=== PATIENT | male | born 1930 | race Caucasian/White ===

== ENCOUNTER 2017-11-25 22:37 | Inpatient (IN) | payer OTHER ==
[~2017-11-25] VITALS: Ht 188 cm; Wt 80.3 kg
--- NOTE | ~2017-11-25 | HC ---
[facility] [place] [address] CONSULTATION Name: KAIT ARANDA Room #: 246-P [facility] IN M.R.#: [id number] Admission: 11/26/17 Attend Phys: Hussain Dove MD Discharge: 11/29/17 Date of : [birth year] Report #: [id number] THIS REPORT FOR: //name// CC: Hussain Breaux REFERRAL PHYSICIAN: Dr. Garcia. REASON FOR REFERRAL: Acute respiratory failure. HISTORY OF PRESENT ILLNESS: The patient is an 87-year-old long term patient with dementia, admitted on 11/26/2017 with an altered mental status. He was found to be hypernatremic, malnourished, encephalopathic, profoundly weak. Pulmonary consult is requested as the patient had progressively been hypoxic, working on CPAP since last evening. Currently, the patient is nonresponsive, breathing about 48 breaths per minute. PAST MEDICAL HISTORY: Notable for history of dementia, progressive debility and weakness, diabetes mellitus type 2, chronic kidney disease, atrial fibrillation, history of heart failure. ALLERGIES: None noted. MEDICATIONS: Lists are reviewed. FAMILY HISTORY: Unknown. SOCIAL HISTORY: He is from the long term. No prior history of tobacco or alcohol use. REVIEW OF SYSTEMS: Deferred as the patient is not able to provide any history. PHYSICAL EXAMINATION: GENERAL: He is not responsive, very tachypneic with respiratory rate around 48. VITAL SIGNS: Temperature 96 degrees Fahrenheit, pulse is 110, respiratory rate is 48-50, blood pressure 107/79 mmHg, saturation % on BiPAP. HEENT: Normocephalic, atraumatic. NECK: Supple, without lymphadenopathy or thyromegaly. CHEST: Breath sounds are coarse bilaterally. Air movements are mildly reduced. CARDIOVASCULAR: Normal S1, S2. There are no obvious murmurs or gallop. Pulses are 2+/4+ bilaterally. ABDOMEN: Soft, nontender, no organomegaly or masses felt. GENITOURINARY: Deferred. RECTAL: Deferred. EXTREMITIES: There is no edema, cyanosis or clubbing. [facility] [address] [place] [address] CONSULTATION Name: KAIT ARANDA Room #: 246-P [facility] IN M.R.#: [id number] Admission: 11/26/17 Attend Phys: Hussain Dove MD Discharge: 11/29/17 Date of : [birth year] Report #: [id number] LABORATORY DATA: Abdominal ultrasound shows diffuse hepatic steatosis, infrarenal aortic aneurysm. Chest x-ray from yesterday shows no acute changes. CT head on admission shows no acute intracranial abnormality, age-related atrophy and chronic microvascular ischemia is noted, mild symmetric ventriculomegaly is present. Sodium on admission was 169. Today is 156, potassium 4.0, chloride 116, CO2 is 22, BUN is 56, creatinine 2.4, on admission was 2.8. Liver enzymes are mildly abnormal. WBC 6600, hemoglobin 15.5, platelets are 60,000. Albumin 1.7. Arterial blood gas performed yesterday revealed pH 7.43, pCO2 33, pO2 147 on FiO2 of 60%. IMPRESSION: 1. Acute hypoxic respiratory failure in this 87-year-old white male with dementia, debility, malnutrition. He was admitted with hypernatremia with a history of chronic kidney disease. Hypernatremia has improved with IV fluids. He is profoundly malnourished with an albumin of 1.7. His encephalopathy remains abnormal being unresponsive. His chest exam is abnormal showing coarse breath sounds bilaterally. The patient's acute respiratory failure is likely multifactorial, encephalopathy, retained respiratory secretions along with possible sepsis leading to leaky capillary syndrome. With profound tachypnea, cannot rule out central nervous system event such as cerebrovascular accident. 2. Hypernatremia, improved, felt to be related to volume depletion. 3. Metabolic encephalopathy, along with history of dementia, likely advanced. 4. Profound malnutrition, albumin as mentioned above. 5. Diabetes. 6. Chronic kidney disease ?acute kidney injury. 7. Medical directive Do Not Resuscitate. RECOMMENDATION AND DISCUSSION: Had a long discussion with the patient's only living son, Andrea, telephone number [phone]. We discussed all the issues as mentioned above. We also discussed the patient's severe distress, particularly respiratory status. Also discussed that given his severe comorbid conditions, I recommended comfort care. The patient's son voices understanding and is agreeable. We will initiate morphine drip to titrate for comfort. Then, we will discontinue BiPAP and O2. Thank you for this consultation. <ELECTRONICALLY SIGNED> By: Juan Carlos Vargas MD 11/30/17 1546 [id number] Juan Carlos Vargas MD /nt
--- NOTE | ~2017-11-25 | EKG ---
[address] [place] [address] ELECTROCARDIOGRAM REPORT Name: KAIT ARANDA Room #: 246-P AD[facility] IN M.R.#: [id number] Admission: 11/26/17 Attend Phys: Hussain Dove MD Discharge: Date of : [birth year] Report #: [id number] THIS REPORT FOR: //name// [facility] ED Test Date: 2017-11-25 Test Time: 23:34:02 Pat Name: KAIT ARANDA Department: Room: Gender: [employer]: ANNABEL : 1930 Requested By: Kait Tomlin Order Number: [id number] MD: Ifeanyi Teran Measurements Intervals [place] Rate: 91 P: -81 TN: 157 QRS: 56 QRSD: 107 T: -86 QT: 396 QTc: 488 Interpretive Statements Sinus or ectopic atrial rhythm Nonspecific ST and T wave abnormality No previous ECG available for comparison Electronically Signed On 11-26-2017 12:58:14 CDT by Ifeanyi Teran [email or web address] <ELECTRONICALLY SIGNED> By: Ifenayi Teran MD, [facility] 11/26/17 [id number] Ifeanyi Teran MD, FACC /EPI
[2017-11-25 22:46] VITALS: BP 140/78
[2017-11-25 23:46] LABS: HCO3 22.3 mmol/L (22.0-26.0); PCO2 37.3 mmHg (35.0-45.0); PO2 71.8 mmHg (80.0-100.0); pH 7.394 (7.360-7.450); sO2 94.5 % (92.0-98.0)
[2017-11-26] VITALS (29 sets, daily range): BP systolic 76–142; BP diastolic 47–100
[2017-11-26 00:19] LABS: HEMATOCRIT 57.3 % (42.0-52.0); HEMOGLOBIN 18.7 gm/dL (14.0-18.0); MCH 30.8 pg (26.0-34.0); MCHC 32.7 g/dL (28.0-37.0); MCV 94.1 fL (80.0-100.0); RBC 6.09 mil/uL (4.50-6.00); RDW 14.3 % (10.5-14.5)
[2017-11-26 00:25] LABS: ANION GAP 16 mmol/L (7-16); BUN 128 mg/dL (7-18); CALCIUM 9.6 mg/dL (8.5-10.1); CHLORIDE 127 mmol/L (98-107); CO2 26 mmol/L (21-32); CREATININE 2.8 mg/dL (0.7-1.3); GLUCOSE 262 mg/dL (74-106); POTASSIUM 3.8 mmol/L (3.5-5.1)
[2017-11-26 00:32] LABS: SODIUM 169 mmol/L (136-145)
[2017-11-26] MEDS ORDERED: TUMS PO (00:34)
[2017-11-26] MEDS ORDERED: PEPCID20 MG PO (00:34)
[2017-11-26] MEDS ORDERED: APAP650 PO (00:34)
[2017-11-26] MEDS ORDERED: ARICEPT10 M1 PO (00:35)
[2017-11-26 00:36] LABS: URINE BLOOD 3+ (Negative); URINE CLARITY CLEAR; URINE GLUCOSE-RANDOM* NEGATIVE (Negative); URINE KETONES NEGATIVE (Negative); URINE LEUKOCYTES-REFLEX NEGATIVE (Negative); URINE NITRITE-REFLEX NEGATIVE (Negative); URINE PROTEIN (DIPSTICK) TRACE (Negative); URINE SPECIFIC GRAVITY >= 1.030 (1.005-1.035)
[2017-11-26] MEDS ORDERED: MELATONIN5 M1 PO (00:36)
[2017-11-26] MEDS ORDERED: ADMELOG SO100 UNIT/1 SUBQ (00:36)
[2017-11-26 00:37] LABS: ALBUMIN 2.8 g/dL (3.4-5.0); DIRECT BILIRUBIN 1.1 mg/dL (<0.1-0.3); SGOT 47 U/L (15-37); SGPT 118 U/L (30-65); TOTAL PROTEIN 7.6 g/dL (6.4-8.2); TROPONIN-I < 0.04 ng/mL (<0.06)
[2017-11-26 00:40] LABS: ICTOTEST (BILI CONFIRMATORY) Negative (Negative); URINE BILIRUBIN NEGATIVE (Negative); URINE COLOR DARK YELLOW
[2017-11-26 00:48] LABS: HYALINE CASTS 0-3 Few /LPF (None Seen); MUCUS 0-3 Light strn/LPF (None Seen)
[2017-11-26 00:49] LABS: AMORPHOUS URATES Few /LPF (None Seen); SQUAMOUS None Seen /LPF (0-3); URINE RBC >20 Many /HPF (0-2)
[2017-11-26 00:50] LABS: BACTERIA-REFLEX >30 Many /HPF (None Seen); URINE WBC-REFLEX 0-5 Rare /HPF (0-5)
[2017-11-26 05:24] LABS: CALCIUM 7.9 mg/dL (8.5-10.1); CREATININE 2.5 mg/dL (0.7-1.3); POTASSIUM 3.7 mmol/L (3.5-5.1)
[2017-11-26 17:26] LABS: CALCIUM 8.1 mg/dL (8.5-10.1); CREATININE 2.1 mg/dL (0.7-1.3); POTASSIUM 3.5 mmol/L (3.5-5.1)
[2017-11-27] VITALS (24 sets, daily range): BP systolic 100–154; BP diastolic 52–84
[2017-11-27 08:59] LABS: HEMATOCRIT 41.8 % (42.0-52.0); MCH 30.9 pg (26.0-34.0); MCHC 32.9 g/dL (28.0-37.0); MCV 93.9 fL (80.0-100.0); RBC 4.45 mil/uL (4.50-6.00); RDW 14.2 % (10.5-14.5)
[2017-11-27 09:06] LABS: HEMOGLOBIN 13.7 gm/dL (14.0-18.0)
[2017-11-27 09:07] LABS: CREATININE 1.7 mg/dL (0.7-1.3); POTASSIUM 3.4 mmol/L (3.5-5.1)
[2017-11-28] VITALS (18 sets, daily range): BP systolic 95–165; BP diastolic 53–105
[2017-11-28 05:11] LABS: HEMATOCRIT 45.3 % (42.0-52.0); HEMOGLOBIN 15.1 gm/dL (14.0-18.0); MCH 30.7 pg (26.0-34.0); MCHC 33.4 g/dL (28.0-37.0); MCV 92.2 fL (80.0-100.0); RBC 4.92 mil/uL (4.50-6.00); RDW 14.2 % (10.5-14.5); WBC 8.8 thou/uL (4.0-11.0)
[2017-11-28 05:26] LABS: ALBUMIN 1.8 g/dL (3.4-5.0); CALCIUM 8.2 mg/dL (8.5-10.1); CREATININE 1.9 mg/dL (0.7-1.3); POTASSIUM 3.6 mmol/L (3.5-5.1); TOTAL BILIRUBIN 1.8 mg/dL (<0.1-1.0)
[2017-11-28 20:30] LABS: BE(vivo) -1.1 mmol/L (-2 to +3); HCO3 22.3 mmol/L (22.0-26.0); PCO2 33.9 mmHg (35.0-45.0); pH 7.435 (7.360-7.450)
[2017-11-29] VITALS (7 sets, daily range): BP systolic 80–144; BP diastolic 44–123
[2017-11-29 05:15] LABS: HEMATOCRIT 46.9 % (42.0-52.0); HEMOGLOBIN 15.5 gm/dL (14.0-18.0); MCH 30.7 pg (26.0-34.0); MCHC 33.1 g/dL (28.0-37.0); MCV 92.7 fL (80.0-100.0); RBC 5.06 mil/uL (4.50-6.00); RDW 14.5 % (10.5-14.5); WBC 6.6 thou/uL (4.0-11.0)
[2017-11-29 05:42] LABS: ALBUMIN 1.7 g/dL (3.4-5.0); CALCIUM 8.7 mg/dL (8.5-10.1); CREATININE 2.4 mg/dL (0.7-1.3); TOTAL BILIRUBIN 1.8 mg/dL (<0.1-1.0); TOTAL PROTEIN 6.5 g/dL (6.4-8.2)
== END 2017-11-29 17:25 | DRG 682 ==
LOC: ER 22:37 → EROBS 11-26 01:40 → ICU 11-26 01:40
PROVIDERS: Emergency Medicine; Hospitalist; Nurse Practitioner Family
DX: N17.0 Acute kidney failure with tubular necrosis (principal); G93.41 Metabolic encephalopathy; J96.01 Acute respiratory failure with hypoxia; E87.0 Hyperosmolality and hypernatremia; E46 Unspecified protein-calorie malnutrition; Z66 Do not resuscitate; F03.90 Unspecified dementia, unspecified severity, without behavioral disturbance, psychotic disturbance, mood disturbance, and anxiety; I50.9 Heart failure, unspecified; I48.91 Unspecified atrial fibrillation; N18.9 Chronic kidney disease, unspecified; E86.0 Dehydration; D69.6 Thrombocytopenia, unspecified; E11.22 Type 2 diabetes mellitus with diabetic chronic kidney disease; R62.7 Adult failure to thrive; K59.00 Constipation, unspecified; Z68.22 Body mass index [BMI] 22.0-22.9, adult; Z79.4 Long term (current) use of insulin; Z79.899 Other long term (current) drug therapy
CPT/HCPCS: 10078; 27000; 85030